=== PATIENT | female | born 1940 | race Caucasian/White ===

== ENCOUNTER 2018-08-03 05:53 | Inpatient (IN) | payer OTHER, BC ==
[~2018-08-03] VITALS: Ht 162.6 cm; Wt 58.1 kg
[2018-08-03 09:29] LABS: PLATELET COUNT 276 x10^3mcL (130-400); RED CELL DISTRIBUTION WIDTH 15.2 % (11.5-14.5)
[2018-08-03 09:33] LABS: CALCIUM 8.8 mg/dL (8.5-10.1); CARBON DIOXIDE 32.3 mmol/L (21-32); CHLORIDE SERUM 105 mmol/L (98-107); CREATININE SERUM 0.7 mg/dL (0.6-1.0); GLUCOSE SERUM 113 mg/dL (74-106); POTASSIUM SERUM 3.3 mmol/L (3.5-5.1); SODIUM SERUM 145 mmol/L (136-145)
[2018-08-03 09:41] LABS: ALKALINE PHOSPHATASE 74 U/L (46-116); ALT/SGPT 19 U/L (14-59); AST/SGOT 24 U/L (15-37); BILIRUBIN TOTAL 0.68 mg/dL (0.20-1.00); TOTAL PROTEIN, SERUM 7.3 g/dL (6.4-8.2)
[2018-08-03 09:43] LABS: ALBUMIN 3.3 g/dL (3.4-5.0)
[2018-08-03 10:45] LABS: BAND NEUTROPHIL 29 % (0-10); BASOPHIL 0 % (0-2); METAMYELOCTE 3 % (0-2); MONOCYTE 1 % (0-7); SEGMENTED NEUTROPHILS 65 % (37-75)
[2018-08-03 10:46] LABS: PLATELET MORPHOLOGY GIANT PLATELET SEEN; rbc morphology (normal/abnorm) ABNORMAL (NORMAL); tear drop cell (dacryocyte) 1+
[2018-08-03] MEDS ORDERED: SPIRIVA18 MC1 (11:14)
[2018-08-03] MEDS ORDERED: ALDACTONE25 MG PO (11:14)
[2018-08-03] MEDS ORDERED: PROAIR HFA8.5 GM IH (11:14)
[2018-08-03] MEDS ORDERED: PREDNISONE1 MG PO (11:15)
[2018-08-03] MEDS ORDERED: RANEXA500 M2 (11:15)
[2018-08-03 12:01] LABS: MAGNESIUM 1.7 mg/dL (1.8-2.4); PHOSPHOROUS 3.4 mg/dL (2.5-4.9)
[2018-08-03 12:13] LABS: CHOLESTEROL/HDL RATIO 2.2
[2018-08-03 18:30] LABS: microscopic required? NO
[2018-08-03 18:32] VITALS: BP 134/68
[2018-08-03 18:35] LABS: UA SPECIFIC GRAVITY 1.025 (1.005-1.035); urine erythrocyte NEGATIVE (NEGATIVE)
[2018-08-03 18:44] LABS: AMPHETAMINE QUAL UR NONE DETECTED (See below)
[2018-08-03 21:12] VITALS: BP 122/54
[2018-08-04 05:25] VITALS: BP 141/69
[2018-08-04 07:20] LABS: PLATELET COUNT 244 x10^3mcL (130-400)
[2018-08-04 07:35] LABS: CALCIUM 9.2 mg/dL (8.5-10.1); CHLORIDE SERUM 102 mmol/L (98-107); CREATININE SERUM 0.7 mg/dL (0.6-1.0); GLUCOSE SERUM 111 mg/dL (74-106); MAGNESIUM 2.3 mg/dL (1.8-2.4); PHOSPHOROUS 3.4 mg/dL (2.5-4.9); POTASSIUM SERUM 5.2 mmol/L (3.5-5.1); SODIUM SERUM 139 mmol/L (136-145)
[2018-08-04 07:48] LABS: RED CELL DISTRIBUTION WIDTH 15.7 % (11.5-14.5)
[2018-08-04 11:28] LABS: BAND NEUTROPHIL 4 % (0-10); BASOPHIL 0 % (0-2); MONOCYTE 2 % (0-7); SEGMENTED NEUTROPHILS 92 % (37-75)
[2018-08-04 11:30] LABS: PLATELET MORPHOLOGY PLATELETS NORMAL; rbc morphology (normal/abnorm) ABNORMAL (NORMAL)
[2018-08-04 12:30] VITALS: BP 148/74
[2018-08-04 17:00] VITALS: BP 134/77
[2018-08-04 21:14] VITALS: BP 127/68
[2018-08-05 02:00] VITALS: BP 138/69
[2018-08-05 04:51] VITALS: BP 147/81
[2018-08-05 06:08] LABS: PLATELET COUNT 206 x10^3mcL (130-400)
[2018-08-05 06:57] LABS: CALCIUM 9.2 mg/dL (8.5-10.1); CARBON DIOXIDE 27.3 mmol/L (21-32); CHLORIDE SERUM 104 mmol/L (98-107); CREATININE SERUM 0.6 mg/dL (0.6-1.0); GLUCOSE SERUM 89 mg/dL (74-106); MAGNESIUM 1.9 mg/dL (1.8-2.4); PHOSPHOROUS 2.8 mg/dL (2.5-4.9); POTASSIUM SERUM 4.3 mmol/L (3.5-5.1); SODIUM SERUM 138 mmol/L (136-145)
[2018-08-05 07:58] LABS: RED CELL DISTRIBUTION WIDTH 15.1 % (11.5-14.5)
[2018-08-05 08:30] VITALS: BP 161/83
[2018-08-05 12:09] LABS: BAND NEUTROPHIL 6 % (0-10); MONOCYTE 4 % (0-7); SEGMENTED NEUTROPHILS 86 % (37-75)
[2018-08-05 12:10] LABS: BASOPHIL 0 % (0-2); PLATELET MORPHOLOGY PLATELETS NORMAL; rbc morphology (normal/abnorm) NORMAL (NORMAL)
[2018-08-05 13:00] VITALS: BP 164/89
[2018-08-05 17:30] VITALS: BP 169/89
[2018-08-05 20:56] VITALS: BP 153/83
[2018-08-06 05:59] VITALS: BP 154/86
[2018-08-06 07:57] LABS: PLATELET COUNT 274 x10^3mcL (130-400); RED CELL DISTRIBUTION WIDTH 13.6 % (11.5-14.5)
[2018-08-06 08:17] LABS: CALCIUM 9.1 mg/dL (8.5-10.1); CARBON DIOXIDE 27.7 mmol/L (21-32); CHLORIDE SERUM 103 mmol/L (98-107); CREATININE SERUM 0.6 mg/dL (0.6-1.0); GLUCOSE SERUM 158 mg/dL (74-106); MAGNESIUM 1.9 mg/dL (1.8-2.4); PHOSPHOROUS 3.9 mg/dL (2.5-4.9); SODIUM SERUM 140 mmol/L (136-145)
[2018-08-06 09:05] VITALS: BP 152/87
[2018-08-06 09:45] LABS: BAND NEUTROPHIL 2 % (0-10); MONOCYTE 6 % (0-7); PLATELET MORPHOLOGY PLATELETS NORMAL; SEGMENTED NEUTROPHILS 88 % (37-75); rbc morphology (normal/abnorm) NORMAL (NORMAL)
[2018-08-06 12:39] VITALS: BP 118/70; BP 139/79
[2018-08-06 21:22] VITALS: BP 149/91
[2018-08-07] VITALS (7 sets, daily range): BP systolic 138–177; BP diastolic 81–108; Ht 162.6 cm; Wt 58.1 kg
[2018-08-07 07:11] LABS: PLATELET COUNT 291 x10^3mcL (130-400)
[2018-08-07 07:24] LABS: CALCIUM 9.2 mg/dL (8.5-10.1); CARBON DIOXIDE 32.4 mmol/L (21-32); CHLORIDE SERUM 107 mmol/L (98-107); CREATININE SERUM 0.6 mg/dL (0.6-1.0); GLUCOSE SERUM 163 mg/dL (74-106); MAGNESIUM 2.1 mg/dL (1.8-2.4); PHOSPHOROUS 3.6 mg/dL (2.5-4.9); POTASSIUM SERUM 4.7 mmol/L (3.5-5.1); SODIUM SERUM 142 mmol/L (136-145)
[2018-08-07 14:20] LABS: BAND NEUTROPHIL 1 % (0-10); BASOPHIL 0 % (0-2); MONOCYTE 2 % (0-7); SEGMENTED NEUTROPHILS 93 % (37-75)
[2018-08-07 14:24] LABS: PLATELET MORPHOLOGY PLATELETS NORMAL; rbc morphology (normal/abnorm) ABNORMAL (NORMAL)
[2018-08-08] VITALS (8 sets, daily range): BP systolic 158–182; BP diastolic 94–105
[2018-08-08 07:44] LABS: PLATELET COUNT 303 x10^3mcL (130-400)
[2018-08-08 07:46] LABS: RED CELL DISTRIBUTION WIDTH 14.7 % (11.5-14.5)
[2018-08-08 07:59] LABS: CARBON DIOXIDE 33.8 mmol/L (21-32); CHLORIDE SERUM 105 mmol/L (98-107); CREATININE SERUM 0.6 mg/dL (0.6-1.0); GLUCOSE SERUM 118 mg/dL (74-106); MAGNESIUM 2.2 mg/dL (1.8-2.4); PHOSPHOROUS 3.3 mg/dL (2.5-4.9); POTASSIUM SERUM 4.3 mmol/L (3.5-5.1); SODIUM SERUM 140 mmol/L (136-145)
[2018-08-08 09:48] LABS: ATYPICAL LYMPH 1 %; BAND NEUTROPHIL 0 % (0-10); BASOPHIL 0 % (0-2); MONOCYTE 5 % (0-7); SEGMENTED NEUTROPHILS 91 % (37-75)
[2018-08-08 09:50] LABS: PLATELET MORPHOLOGY PLATELETS DECREASED; rbc morphology (normal/abnorm) ABNORMAL (NORMAL)
[2018-08-08] MEDS ORDERED: VANCOMYCIN1 GM/1001 IV (10:25)
[2018-08-08] MEDS ORDERED: PREDNISONE20 MG PO (10:26)
[2018-08-09 05:01] VITALS: BP 165/86
[2018-08-09 06:31] LABS: PLATELET COUNT 332 x10^3mcL (130-400)
[2018-08-09 06:32] LABS: BASOPHIL % 0 % (0-2); RED CELL DISTRIBUTION WIDTH 14.9 % (11.5-14.5)
[2018-08-09 06:51] VITALS: BP 163/91
[2018-08-09 06:52] LABS: CALCIUM 9.1 mg/dL (8.5-10.1); CARBON DIOXIDE 36.2 mmol/L (21-32); CHLORIDE SERUM 102 mmol/L (98-107); CREATININE SERUM 0.6 mg/dL (0.6-1.0); GLUCOSE SERUM 100 mg/dL (74-106); MAGNESIUM 2.1 mg/dL (1.8-2.4); POTASSIUM SERUM 5.2 mmol/L (3.5-5.1); SODIUM SERUM 142 mmol/L (136-145)
[2018-08-09 09:00] VITALS: BP 145/73
[2018-08-09 18:00] VITALS: BP 148/78
[2018-08-09 22:50] VITALS: BP 167/96
[2018-08-10 06:56] VITALS: BP 134/69
[2018-08-10 07:14] LABS: PLATELET COUNT 345 x10^3mcL (130-400); RED CELL DISTRIBUTION WIDTH 14.4 % (11.5-14.5)
[2018-08-10 07:33] LABS: CALCIUM 8.9 mg/dL (8.5-10.1); CARBON DIOXIDE 36.7 mmol/L (21-32); CHLORIDE SERUM 103 mmol/L (98-107); CREATININE SERUM 0.4 mg/dL (0.6-1.0); GLUCOSE SERUM 90 mg/dL (74-106); POTASSIUM SERUM 4.1 mmol/L (3.5-5.1); SODIUM SERUM 141 mmol/L (136-145)
[2018-08-10 09:15] VITALS: BP 134/74
[2018-08-10 11:21] LABS: BAND NEUTROPHIL 7 % (0-10); BASOPHIL 0 % (0-2); MONOCYTE 7 % (0-7); PLATELET MORPHOLOGY GIANT PLATELET SEEN; SEGMENTED NEUTROPHILS 76 % (37-75); rbc morphology (normal/abnorm) NORMAL (NORMAL)
[2018-08-10 17:15] VITALS: BP 143/75
[2018-08-10 20:43] VITALS: BP 129/72
[2018-08-11 05:05] VITALS: BP 145/78
[2018-08-11 08:15] VITALS: BP 155/86
[2018-08-11 08:20] LABS: PLATELET COUNT 391 x10^3mcL (130-400)
[2018-08-11 08:27] LABS: RED CELL DISTRIBUTION WIDTH 14.6 % (11.5-14.5)
[2018-08-11 08:33] LABS: CALCIUM 9.1 mg/dL (8.5-10.1); CARBON DIOXIDE 36.8 mmol/L (21-32); CHLORIDE SERUM 101 mmol/L (98-107); CREATININE SERUM 0.5 mg/dL (0.6-1.0); GLUCOSE SERUM 94 mg/dL (74-106); POTASSIUM SERUM 4.1 mmol/L (3.5-5.1); SODIUM SERUM 140 mmol/L (136-145)
[2018-08-11 10:35] LABS: BAND NEUTROPHIL 3 % (0-10); BASOPHIL 0 % (0-2); MONOCYTE 6 % (0-7); SEGMENTED NEUTROPHILS 86 % (37-75)
[2018-08-11 10:37] LABS: rbc morphology (normal/abnorm) NORMAL (NORMAL)
[2018-08-11 11:57] VITALS: BP 155/75
[2018-08-11] MEDS ORDERED: ROC1PM IV (12:45)
[2018-08-11 16:20] VITALS: BP 134/65
[2018-08-11 18:20] VITALS: BP 136/76
[2018-08-12 05:46] VITALS: BP 88/73
[2018-08-12 06:14] LABS: CALCIUM 9.3 mg/dL (8.5-10.1); CARBON DIOXIDE 39.3 mmol/L (21-32); CHLORIDE SERUM 104 mmol/L (98-107); CREATININE SERUM 0.6 mg/dL (0.6-1.0); GLUCOSE SERUM 95 mg/dL (74-106); MAGNESIUM 2.2 mg/dL (1.8-2.4); PHOSPHOROUS 3.2 mg/dL (2.5-4.9); SODIUM SERUM 143 mmol/L (136-145)
[2018-08-12 08:12] VITALS: BP 140/59
[2018-08-12 08:33] LABS: BASOPHIL % 0.2 % (0-2)
[2018-08-12 08:34] LABS: PLATELET COUNT 468 x10^3mcL (130-400); RED CELL DISTRIBUTION WIDTH 14.6 % (11.5-14.5)
[2018-08-12 12:15] VITALS: BP 125/66
[2018-08-12 12:29] VITALS: BP 125/66
[2018-08-12 16:39] VITALS: BP 104/54
== END 2018-08-12 20:08 | disposition short-term general hospital (02) | DRG 871 ==
LOC: ED 05:53 → DU 10:42 → MU 10:42 → DU 08-04 08:35
PROVIDERS: Emergency Medicine; Internal Medicine; ADMIT General Practice
DX: A41.01 Sepsis due to Methicillin susceptible Staphylococcus aureus (principal); J18.9 Pneumonia, unspecified organism; J96.01 Acute respiratory failure with hypoxia; M48.54XA Collapsed vertebra, not elsewhere classified, thoracic region, initial encounter for fracture; J44.1 Chronic obstructive pulmonary disease with (acute) exacerbation; E44.1 Mild protein-calorie malnutrition; Z68.1 Body mass index [BMI] 19.9 or less, adult; E87.6 Hypokalemia; M40.209 Unspecified kyphosis, site unspecified; I27.20 Pulmonary hypertension, unspecified; E83.42 Hypomagnesemia; E78.5 Hyperlipidemia, unspecified; Z87.891 Personal history of nicotine dependence; I25.10 Atherosclerotic heart disease of native coronary artery without angina pectoris
CPT/HCPCS: 36600; 82962; 83880; 97530-GP; J0360; J0696; J1170; J1885; J1956; J2060; J2270; J2405; J2800; J2920; J2930; J3370; J3475; J3490; J7030; J7512; J7613; J7620; J7644; Q0092